=== PATIENT | female | born 1975 | race Two or more races ===

== ENCOUNTER 2018-12-28 09:44 | Outpatient (CLI) | payer OTHER | END 2018-12-28 09:50 | disposition home or self-care (01) | LOC: MAMO-SONO 09:44 | DX: N63.10 Unspecified lump in the right breast, unspecified quadrant (principal); N63.20 Unspecified lump in the left breast, unspecified quadrant; N64.4 Mastodynia; N60.11 Diffuse cystic mastopathy of right breast; Z12.31 Encounter for screening mammogram for malignant neoplasm of breast ==